=== PATIENT | female | born 1995 | race Caucasian/White ===

== ENCOUNTER 2020-01-12 21:34 | Emergency (ER) | payer OTHER ==
[~2020-01-12] VITALS: Ht 165.1 cm; Wt 94.9 kg
[2020-01-12 21:44] VITALS: BP 150/76
--- NOTE | 2020-01-12 21:59 | NUR ---
PA TO BEDSIDE AT THIS TIME
[2020-01-12] MEDS ORDERED: DIPH,PERTUSS(ACELL),TET VAC/PF 0.5 ML IM-VACC ONE ×2 (22:16→22:30)
== END 2020-01-12 23:33 | disposition home or self-care (01) ==
LOC: ED 23:15
DX: S90.221A Contusion of right lesser toe(s) with damage to nail, initial encounter (principal); X58.XXXA Exposure to other specified factors, initial encounter; Y93.89 Activity, other specified; Y92.009 Unspecified place in unspecified non-institutional (private) residence as the place of occurrence of the external cause; Y99.8 Other external cause status
CPT/HCPCS: 11740; 90471; 90715; 99284